=== PATIENT | female | born 1985 | race Caucasian/White ===

== ENCOUNTER 2018-04-02 07:41 | Inpatient (IN) ==
[2018-04-02] MEDS ORDERED: Influenza (Quadrivalent) Vaccine 0.5 ML Syringe IM ONE (08:45)
[2018-04-02 09:04] LABS: Baso % (Auto) 0.2 % (0.0-2.0); Eos # (Auto) 0.1 th/mm3 (0.0-0.4); Eos % (Auto) 0.7 % (0.0-4.0); Hematocrit 35.4 % (35.0-46.0); Hemoglobin 11.9 gm/dL (11.6-15.3); Lymph # (Auto) 2.6 th/mm3 (1.0-4.8); Lymph % (Auto) 24.5 % (9.0-44.0); Mean Corpuscular HGB Conc 33.7 % (32.0-36.0); Mean Corpuscular Hemoglobin 30.1 pg (27.0-34.0); Mean Corpuscular Volume 89.4 fL (80.0-100.0); Mean Platelet Volume 8.4 fL (7.0-11.0); Mono # (Auto) 0.6 th/mm3 (0.0-0.9); Mono % (Auto) 5.8 % (0.0-8.0); Neut # (Auto) 7.3 th/mm3 (1.8-7.7); Neut % (Auto) 68.8 % (16.0-70.0); Platelet Count 321 th/mm3 (150-450); Red Blood Count 3.96 mil/mm3 (4.00-5.30); Red Cell Distribution Width 13.7 % (11.6-17.2); White Blood Count 10.7 th/mm3 (4.0-11.0)
[2018-04-02 09:18] LABS: Bacteria,Urine Rare /hpf; Bilirubin,Urine Negative (Negative); Clarity,Urine Clear (Clear); Color,Urine Straw (Yellw/Straw); Glucose,Urine (UA) Negative (Negative); Leukocyte Esterase,Urine Small (Negative); Mucus,Urine Few /lpf (Occasional); Nitrite,Urine Negative (Negative); Specific Gravity,Urine 1.005 (1.002-1.035); Squamous Epithelial Cell,Urine 2 /hpf (0-5)
[2018-04-02] MEDS ORDERED: Sod Chloride 0.9% Inj 1,000 ML IV.CONT PRN (09:31)
[2018-04-02] MEDS ORDERED: fentaNYL Citrate Inj 100 MCG/2 ML Ampul IV.PUSH PRN ×2 (09:31)
[2018-04-02] MEDS ORDERED: Oxytocin 30 Units/500ml Premix 30 UNITS/500 ML BAG IV.SIG ONE (09:31)
[2018-04-02] MEDS ORDERED: Sodium Chlor 0.9% Inj 500 ML IV.SIG PRN (09:31)
[2018-04-02] MEDS ORDERED: Naloxone Inj 0.4 MG/ML Vial IV.PUSH PRN ×2 (09:31→14:56)
[2018-04-02] MEDS ORDERED: Oxytocin 30 Units/500ml Premix 30 UNITS/500 ML BAG IV.SIG PRN (09:34)
[2018-04-02] MEDS ORDERED: Citric Acid/Sodium Citrate Liq 30 ML UDC PO SCH (09:45)
--- NOTE | 2018-04-02 09:57 | P.OBLABOR ---
Subjective Interval history: late to the unit not in pain thinks she began leaking last night got her methadone this am will redose tomorrow after delivery Objective Vital Signs: Vital Signs - 8 hr 04/02/18 08:55 Pulse Rate 72 Blood Pressure 112/62 Objective: Pelvic Exam: strip difficult to trace not worrisome 80/-2 arom vs forewaters broken GBS- FSE placed Patient Started Active Labor: No Medical Induction of Labor: Yes Artificial Rupture of Membrane: Yes Artificial ROM Date: 04/02/18 Artificial ROM Time: 09:56 Assessment and Plan - Diagnosis (1) 38 weeks gestation of Code(s): Z3A.38 - 38 weeks gestation of Status: Acute (2) Opioid use disorder Code(s): F11.99 - Opioid use, unspecified with unspecified opioid-induced disorder Status: Acute (3) Hepatitis C antibody positive in blood Code(s): R76.8 - Other specified abnormal immunological findings in serum Status: Acute (4) Methadone dependence Code(s): F11.20 - Opioid dependence, uncomplicated Status: Acute - Plan anticipate augment and epidural prn
[2018-04-02] MEDS ORDERED: fentaNYL 2MCG-Bupiv 0.125% Epi 150 ML EPIDURAL ONE (11:30)
[2018-04-02] MEDS ORDERED: Lidocaine PF 1% Inj 5 ML Vial ONE (12:24)
[2018-04-02] MEDS ORDERED: Sodium Chlor 0.9% Inj 10 ML ONE (12:25)
[2018-04-02] MEDS ORDERED: Witch Hazel 50%/Glyderin 12.5% 40 Pad Jar RECTAL PRN (14:56)
[2018-04-02] MEDS ORDERED: Oxytocin 30 Units/500ml Premix 30 UNITS/500 ML BAG IV.CONT PRN (14:56)
[2018-04-02] MEDS ORDERED: Acetaminophen 325 MG Tablet PO PRN (14:56)
[2018-04-02] MEDS ORDERED: Benzocaine 20% Top Spray 60 ML Can TOPICAL PRN (14:56)
[2018-04-02] MEDS ORDERED: Bisacodyl 10 MG Supp RECTAL PRN (14:56)
[2018-04-02] MEDS ORDERED: Zolpidem Tartrate 5 MG Tablet PO PRN (14:56)
--- NOTE | 2018-04-02 14:56 | P.OBDELI ---
Weeks Gestation: 38 Patient Started Active Labor: Yes Medical Induction of Labor: Yes Artificial Rupture of Membrane: Yes (possible SROM Friday night GBS-) Artificial ROM Date: 04/02/18 Artificial ROM Time: 09:00 Anesthesia: Epidural Episiotomy: none Vaginal Delivery: Normal, Presentation: Occiput anterior Nuchal Cord: None, x1 Delayed Cord Clamping (45 sec): Yes Placenta: Spontaneous delivery, Intact, 3 vessel cord Laceration: 2 deg Repair: Chromic interrupted Estimated blood loss (mL): 200 : Female Female A Delivery Date: 04/02/18 Infant Delivery Time: 14:55 score (1 min): 8 score (5 min): 9 (vacuum applied by Dr. Parra while I was en route due to prolonged bradycardia and lack of maternal effort.)
--- NOTE | 2018-04-02 15:00 | P.OBGPN ---
Patient came to practice late third trimester already on 190 mg methadone and 2 mg xanax daily with [facility] and with her psychiatrist, which I did not yet confirm. We reviewed the ideal situation of not taking the benzodiazepene regularly but she was unable to discontinue. She desires the same regimen be resumed. I am trying 1 mg xanax TID instead of 2 TID. NICU to be notified. May impact desire to encourage nursing.
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
[2018-04-02] MEDS ORDERED: fentaNYL Citrate Inj 100 MCG/2 ML Ampul EPIDURAL ONE (15:17)
[2018-04-02] MEDS ORDERED: fentaNYL 2MCG-Bupiv 0.125% Epi 150 ML EPIDURAL PRN (15:17)
[2018-04-02] MEDS ORDERED: Measles/Mumps/Rubella Vaccine Inj 0.5 ML Vial SQ ONE (16:00)
[2018-04-02] MEDS ORDERED: Diphtheria/Tetanus/Pertussis Vaccine Inj 0.5 ML Syringe IM ONE (16:00)
[2018-04-02] MEDS ORDERED: Levothyroxine 50 MCG Tablet PO SCH (18:15)
[2018-04-02] MEDS: Senna/Docusate Sodium 8.6/50 MG Tablet PO SCH (22:53)
[2018-04-03] MEDS: Levothyroxine 50 MCG Tablet PO SCH (06:40)
[2018-04-03] MEDS: Methadone 10 MG Tablet PO SCH (06:40)
[2018-04-03] MEDS ORDERED: Senna/Docusate Sodium 8.6/50 MG Tablet PO PRN (07:44)
--- NOTE | 2018-04-03 07:45 | P.PNOB ---
Subjective Post day: 1 Interval history: Doing well, having some rectal and vaginal soreness, bleeding greater than menses, small clots but decreasing, no nausea or vomiting, voiding without difficulty. Objective Vital Signs/I&O: Vital Signs 04/02/18 08:55 04/02/18 09:00 04/02/18 10:05 Temperature 98.0 F Pulse Rate 72 67 Respiratory Rate 18 Blood Pressure 112/62 111/70 04/02/18 10:45 04/02/18 11:10 04/02/18 11:55 Temperature Pulse Rate 53 L 71 Respiratory Rate 18 Blood Pressure 113/60 114/58 L 04/02/18 12:03 04/02/18 12:10 04/02/18 12:12 Temperature Pulse Rate 77 69 86 Respiratory Rate Blood Pressure 116/69 117/63 120/65 04/02/18 12:25 04/02/18 12:30 04/02/18 12:45 Temperature Pulse Rate 74 Respiratory Rate 16 18 Blood Pressure 123/62 04/02/18 12:50 04/02/18 13:00 04/02/18 13:13 Temperature 98.1 F Pulse Rate 70 76 Respiratory Rate Blood Pressure 110/55 L 97/58 L 04/02/18 13:25 04/02/18 13:40 04/02/18 13:50 Temperature Pulse Rate 71 71 Respiratory Rate Blood Pressure 99/59 L 95/56 L 104/65 04/02/18 14:10 04/02/18 14:33 04/02/18 14:46 Temperature Pulse Rate 68 68 87 Respiratory Rate 20 Blood Pressure 121/69 121/73 119/55 L 04/02/18 16:45 04/02/18 19:00 Temperature 97.6 F 97.4 F L Pulse Rate 89 76 Respiratory Rate 18 18 Blood Pressure 123/69 120/74 Intake & Output 04/02/18 04/03/18 04/03/18 18:59 06:59 18:59 Intake Total 1999 Balance 1999 Weight 79.379 kg Intake: IV 1999 LR 1000 mL Inj 1,000 ML @ 125 1000 / 1000 mls/hr IV.CONT .Q8H [facility] Rx#: [id number] LR 1000 mL Inj 1,000 ML @ 3000 1000 / 1000 mls/hr IV.SIG UNSCH PRN Rx#: [id number] Other: Weight On Admission 79.379 kg Result Diagrams: 04/02/18 08:30 Objective Remarks: GENERAL: Well-nourished, well-developed patient. CARDIOVASCULAR: Regular rate and rhythm without murmurs, gallops, or rubs. RESPIRATORY: Breath sounds equal bilaterally. No accessory muscle use. ABDOMEN/GI: Abdomen soft, non-tender. Fundus: Firm, non-tender at umbilicus. GENITOURINARY: Light to moderate bleeding. EXTREMITIES: No cyanosis or edema, non-tender, without signs of DVT. Medications and IVs: Active Medications Acetaminophen (Tylenol) 650 mg PO Q4H PRN PRN Reason: PAIN SCALE 1 TO 2 Al Hydroxide/Mg Hydroxide (Milk Of Magnesia Liq) 30 ml PO Q12H PRN PRN Reason: Mild Constipation Albuterol (Ventolin Hfa Inh) 2 puff INH Q4HR [facility] Alprazolam (Xanax) 1 mg PO Q8HR [facility] Last Admin: 04/03/18 06:39 Dose: 1 mg Benzocaine (Americaine 20% Top [place]) 1 spray TOPICAL Q4H PRN PRN Reason: For Perineum Discomfort Last Admin: 04/02/18 22:52 Dose: 1 spray Bisacodyl (Dulcolax Supp) 10 mg RECTAL DAILY PRN PRN Reason: SEVERE CONSITIPATION Citric Acid/Sodium Citrate (Sodium Citrate/Citric Acid Liq) 30 ml PO [facility] [employer] Stop: 04/06/18 09:44 Ephedrine Sulfate (Ephedrine/Ns Syringe) 10 mg IV.PUSH UNSCH PRN PRN Reason: SEE LABEL COMMENTS Stop: 04/03/18 15:17 Last Admin: 04/02/18 13:47 Dose: 10 mg Fentanyl Citrate (Fentanyl Inj) 50 mcg IV.PUSH Q1H PRN PRN Reason: Pain Scale 3 - 5 Fentanyl Citrate (Fentanyl Inj) 100 mcg IV.PUSH Q1H PRN PRN Reason: PAIN SCALE 6 TO 10 Last Admin: 04/02/18 11:08 Dose: 100 mcg Lactated Ringer's (Lr 1000 Ml Inj) 1,000 mls @ 3,000 mls/hr IV.SIG UNSCH PRN PRN Reason: compromise or epidural Last Infusion: 04/02/18 11:50 Dose: Infused Lactated Ringer's (Lr 1000 Ml Inj) 1,000 mls @ 125 mls/hr IV.CONT .Q8H [facility] Last Infusion: 04/02/18 11:30 Dose: Infused Sodium Chloride (Ns Inj) 500 mls @ 1,000 mls/hr IV.SIG UNSCH PRN PRN Reason: SEE LABEL COMMENTS Sodium Chloride (Ns Inj) 1,000 mls @ 100 mls/hr IV.CONT .Q10H PRN PRN Reason: SEE LABEL COMMENTS Oxytocin (Pitocin 30 Units/Ns 500 Ml Premix) 30 units in 500 mls @ 2 mls/hr IV.SIG TITRATE PRN; Protocol PRN Reason: For induction of labor Last Admin: 04/02/18 10:00 Dose: 2 milliunit/min, 2 mls/hr Oxytocin (Pitocin 30 Units/Ns 500 Ml Premix) 30 units in 500 mls @ 100 mls/hr IV.CONT UNSCH PRN PRN Reason: Heavy bleeding Fentanyl/Bupivacaine/Sodium Chlor (Fentanyl 2 Mcg-Bupiv 0.125% Epi) 150 mls @ 10 mls/hr EPIDURAL PRN PRN PRN Reason: for Labor Pain Last Admin: 04/02/18 12:15 Dose: 10 mls/hr Ibuprofen (Motrin) 800 mg PO Q8H PRN PRN Reason: For Cramping Last Admin: 04/02/18 18:13 Dose: 800 mg Lactulose (Lactulose Liq) 30 ml PO DAILY PRN PRN Reason: SEVERE CONSITIPATION Levothyroxine Sodium (Synthroid) 50 mcg PO DAILY@0600 [facility] Last Admin: 04/03/18 06:40 Dose: 50 mcg Lidocaine HCl (Xylocaine 1% Inj) 0.1 ml I-DERMAL PRN PRN PRN Reason: For IV start Stop: 04/05/18 09:30 Lidocaine HCl (Xylocaine 1% Inj) 10 ml INFILTRATN PRN PRN PRN Reason: For episiotomy repair Stop: 04/04/18 09:30 Methadone HCl (Dolophine) 190 mg PO AC BREAKFAST [facility] Last Admin: 04/03/18 06:40 Dose: 190 mg Mineral Oil (Muri-Lube Oil) 10 ml TOPICAL PRN PRN PRN Reason: PRN perineal massage Miscellaneous Information (Misc Information) 1 each OTHER UNSCH PRN PRN Reason: SEE LABEL COMMENTS Stop: 04/03/18 15:17 Miscellaneous Information (Misc Information) 1 each OTHER UNSCH PRN PRN Reason: SEE LABEL COMMENTS Stop: 04/03/18 15:17 Naloxone HCl (Narcan Inj) 0.1 mg IV.PUSH Q2M PRN PRN Reason: for opiate reversal Naloxone HCl (Narcan Inj) 0.1 mg IV.PUSH Q2M PRN PRN Reason: for opiate reversal Ondansetron HCl (Zofran Odt) 4 mg PO Q6H PRN PRN Reason: NAUSEA OR VOMITING Senna/Docusate Sodium (Dilia-Colace) 1 tab PO BID [facility] Last Admin: 04/02/18 22:53 Dose: 1 tab Sennosides (Senokot) 17.2 mg PO Q12H PRN PRN Reason: Moderate Constipation Sodium Chloride (Ns Flush) 2 ml IV.FLUSH BID [facility] Sodium Chloride (Ns Flush) 2 ml IV.FLUSH PRN PRN PRN Reason: FLUSH AFTER USING IV ACCESS [place]/Glycerin (Tucks Pads) 1 applicatio RECTAL QID PRN PRN Reason: HEMORRHOIDS Last Admin: 04/02/18 22:52 Dose: 1 applicatio Zolpidem Tartrate (Ambien) 5 mg PO HS PRN PRN Reason: SLEEP Assessment and Plan - Diagnosis (1) 38 weeks gestation of Code(s): Z3A.38 - 38 weeks gestation of Status: Acute (2) Opioid use disorder Code(s): F11.99 - Opioid use, unspecified with unspecified opioid-induced disorder Status: Acute (3) Hepatitis C antibody positive in blood Code(s): R76.8 - Other specified abnormal immunological findings in serum Status: Acute (4) Methadone dependence Code(s): F11.20 - Opioid dependence, uncomplicated Status: Acute - Plan 32-year-old status post vacuum-assisted vaginal after at 38 weeks and 3 days 1. day #1: Doing well, anticipate discharge home in the next 24 hours, discussed precautions expectations and follow-up. -Female 2. Asthma: Well controlled, needs refill for albuterol I sent her with this 3. Anxiety: Takes Xanax 1-2 mg 3 times a day 4. Constipation: Sent with stool softeners 5. Opioid use disorder: Continue home maintenance medicine. 6. Rh-: RhoGam per protocol.
[2018-04-03] MEDS: Senna/Docusate Sodium 8.6/50 MG Tablet PO SCH ×2 (10:28→21:09)
--- NOTE | 2018-04-04 05:18 | P.PNOB ---
Subjective Post day: 2 Interval history: improving from yesterday Objective Vital Signs/I&O: Vital Signs 04/03/18 08:00 04/03/18 20:00 Temperature 97.8 F 98.4 F Pulse Rate 74 75 Respiratory Rate 18 18 Blood Pressure 119/74 117/61 Result Diagrams: 04/02/18 08:30 Objective Remarks: GENERAL: Well-nourished, well-developed patient. CARDIOVASCULAR: Regular rate and rhythm without murmurs, gallops, or rubs. RESPIRATORY: Breath sounds equal bilaterally. No accessory muscle use. ABDOMEN/GI: Abdomen soft, non-tender. Fundus: Firm, non-tender at umbilicus. GENITOURINARY: Light to moderate bleeding. EXTREMITIES: No cyanosis or edema, non-tender, without signs of DVT. Medications and IVs: Active Medications Acetaminophen (Tylenol) 650 mg PO Q4H PRN PRN Reason: PAIN SCALE 1 TO 2 Al Hydroxide/Mg Hydroxide (Milk Of Magnesia Liq) 30 ml PO Q12H PRN PRN Reason: Mild Constipation Albuterol (Ventolin Hfa Inh) 2 puff INH Q4HR [facility] Last Admin: 04/04/18 03:19 Dose: 2 puff Alprazolam (Xanax) 1 mg PO Q8HR [facility] Last Admin: 04/03/18 23:12 Dose: 1 mg Benzocaine (Americaine 20% Top [place]) 1 spray TOPICAL Q4H PRN PRN Reason: For Perineum Discomfort Last Admin: 04/02/18 22:52 Dose: 1 spray Bisacodyl (Dulcolax Supp) 10 mg RECTAL DAILY PRN PRN Reason: SEVERE CONSITIPATION Citric Acid/Sodium Citrate (Sodium Citrate/Citric Acid Liq) 30 ml PO RN ACUTE [facility] Stop: 04/06/18 09:44 Fentanyl Citrate (Fentanyl Inj) 50 mcg IV.PUSH Q1H PRN PRN Reason: Pain Scale 3 - 5 Fentanyl Citrate (Fentanyl Inj) 100 mcg IV.PUSH Q1H PRN PRN Reason: PAIN SCALE 6 TO 10 Last Admin: 04/02/18 11:08 Dose: 100 mcg Hydrocortisone Acetate (Anusol-Hc) 1 applicatio RECTAL TID [facility] Last Admin: 04/03/18 16:57 Dose: 1 applicatio Lactated Ringer's (Lr 1000 Ml Inj) 1,000 mls @ 3,000 mls/hr IV.SIG UNSCH PRN PRN Reason: compromise or epidural Last Infusion: 04/02/18 11:50 Dose: Infused Lactated Ringer's (Lr 1000 Ml Inj) 1,000 mls @ 125 mls/hr IV.CONT .Q8H [facility] Last Infusion: 04/02/18 11:30 Dose: Infused Sodium Chloride (Ns Inj) 500 mls @ 1,000 mls/hr IV.SIG UNSCH PRN PRN Reason: SEE LABEL COMMENTS Sodium Chloride (Ns Inj) 1,000 mls @ 100 mls/hr IV.CONT .Q10H PRN PRN Reason: SEE LABEL COMMENTS Oxytocin (Pitocin 30 Units/Ns 500 Ml Premix) 30 units in 500 mls @ 2 mls/hr IV.SIG TITRATE PRN; Protocol PRN Reason: For induction of labor Last Admin: 04/02/18 10:00 Dose: 2 milliunit/min, 2 mls/hr Oxytocin (Pitocin 30 Units/Ns 500 Ml Premix) 30 units in 500 mls @ 100 mls/hr IV.CONT UNSCH PRN PRN Reason: Heavy bleeding Fentanyl/Bupivacaine/Sodium Chlor (Fentanyl 2 Mcg-Bupiv 0.125% Epi) 150 mls @ 10 mls/hr EPIDURAL PRN PRN PRN Reason: for Labor Pain Last Admin: 04/02/18 12:15 Dose: 10 mls/hr Ibuprofen (Motrin) 800 mg PO Q8H PRN PRN Reason: For Cramping Last Admin: 04/03/18 17:11 Dose: 800 mg Lactulose (Lactulose Liq) 30 ml PO DAILY PRN PRN Reason: SEVERE CONSITIPATION Levothyroxine Sodium (Synthroid) 50 mcg PO DAILY@0600 [facility] Last Admin: 04/03/18 06:40 Dose: 50 mcg Lidocaine HCl (Xylocaine 1% Inj) 0.1 ml I-DERMAL PRN PRN PRN Reason: For IV start Stop: 04/05/18 09:30 Lidocaine HCl (Xylocaine 1% Inj) 10 ml INFILTRATN PRN PRN PRN Reason: For episiotomy repair Stop: 04/04/18 09:30 Methadone HCl (Dolophine) 190 mg PO AC BREAKFAST [facility] Last Admin: 04/03/18 06:40 Dose: 190 mg Mineral Oil (Muri-Lube Oil) 10 ml TOPICAL PRN PRN PRN Reason: PRN perineal massage Naloxone HCl (Narcan Inj) 0.1 mg IV.PUSH Q2M PRN PRN Reason: for opiate reversal Naloxone HCl (Narcan Inj) 0.1 mg IV.PUSH Q2M PRN PRN Reason: for opiate reversal Ondansetron HCl (Zofran Odt) 4 mg PO Q6H PRN PRN Reason: NAUSEA OR VOMITING Senna/Docusate Sodium (Dilia-Colace) 1 tab PO BID [facility] Last Admin: 04/03/18 21:09 Dose: 1 tab Senna/Docusate Sodium (Dilia-Colace) 2 tab PO Q12H PRN PRN Reason: CONSTIPATION Sennosides (Senokot) 17.2 mg PO Q12H PRN PRN Reason: Moderate Constipation Sodium Chloride (Ns Flush) 2 ml IV.FLUSH BID [facility] Sodium Chloride (Ns Flush) 2 ml IV.FLUSH PRN PRN PRN Reason: FLUSH AFTER USING IV ACCESS Witch Diana/Glycerin (Tucks Pads) 1 applicatio RECTAL QID PRN PRN Reason: HEMORRHOIDS Last Admin: 04/02/18 22:52 Dose: 1 applicatio Zolpidem Tartrate (Ambien) 5 mg PO HS PRN PRN Reason: SLEEP Assessment and Plan - Diagnosis (1) 38 weeks gestation of Code(s): Z3A.38 - 38 weeks gestation of Status: Acute (2) Opioid use disorder Code(s): F11.99 - Opioid use, unspecified with unspecified opioid-induced disorder Status: Acute (3) Hepatitis C antibody positive in blood Code(s): R76.8 - Other specified abnormal immunological findings in serum Status: Acute (4) Methadone dependence Code(s): F11.20 - Opioid dependence, uncomplicated Status: Acute - Plan 32-year-old status post vacuum-assisted vaginal after at 38 weeks and 3 days 1. day #2: Doing well, anticipate discharge home today. -Female 2. Asthma: Well controlled, sent with refill for albuterol 3. Anxiety: Takes Xanax 1-2 mg 3 times a day, rx by provider in community 4. Constipation / hemorrhoids: Sent with stool softeners and anusol 5. Opioid use disorder: Continue home methadone. 6. Rh-: RhoGam per protocol.
[2018-04-04] MEDS ORDERED: Rho Immune Globulin Inj 1,500 UNIT/1.3 ML Vial IM PRN (05:20)
[2018-04-04] MEDS: Methadone 10 MG Tablet PO SCH (06:47)
[2018-04-04] MEDS: Levothyroxine 50 MCG Tablet PO SCH (06:47)
[2018-04-04] MEDS: Senna/Docusate Sodium 8.6/50 MG Tablet PO SCH (08:32)
== END 2018-04-04 12:50 | disposition home or self-care (01) | DRG 806 ==
LOC: H2E 07:41 → H1EA 16:45
PROVIDERS: ADMIT Obstetrics & Gynecology; ATTEND Obstetrics & Gynecology
CPT/HCPCS: 59025; 80307; 81001; 85025; 85461; 86850; 90384; 90658; 90686; 90715; 96372; G0481; G0483; J2590; J2790; J3010; J7120; Q2038